=== PATIENT | male | born 1960 | race African-American/Black ===

== ENCOUNTER 2021-09-21 16:20 | Inpatient (IN) | payer MEDICAID ==
[~2021-09-21] VITALS: Ht 180.3 cm; Wt 103.9 kg
[2021-09-21] MEDS ORDERED: NITROGLYCERIN 0.4MG TABLET SL SL ONE (17:00)
[2021-09-21] MEDS ORDERED: ACETAMINOPHEN 650MG/20.3ML UDC PO ONE (17:00)
[2021-09-21 17:38] LABS: BASOPHILS % 0.5 % (0.0-2.0); HEMATOCRIT. 52.1 % (42.0-52.0); HEMOGLOBIN. 17.9 g/dL (14.0-18.0); LYMPHOCYTES % 20.8 % (20.0-50.0); MEAN CORPUSCULAR HEMOGLOBIN 29.9 pg (28.0-32.0); MEAN CORPUSCULAR VOLUME 87.2 fL (80.0-94.0); MEAN PLATELET VOLUME 8.9 fl (7.4-10.4); MONOCYTES % 7.6 % (2.0-8.0); NEUTROPHILS % 70.1 % (40.0-76.0); PLATELET 219 x1000/uL (130-400); RED BLOOD CELL COUNT 5.97 mill/uL (4.7-6.1); RED CELL DISTRIBUTION WIDTH 13.6 % (11.6-14.6)
[2021-09-21 17:43] LABS: CHLORIDE 108 mEq/L (98-107)
[2021-09-21] MEDS ORDERED: FAMOTIDINE 20MG/2ML VIAL IV NR (21:30)
[2021-09-22 01:51] VITALS: BP 154/95
[2021-09-22] MEDS ORDERED: LISI40TA13 PO (02:57)
[2021-09-22] MEDS ORDERED: AMLO10TA80 PO (02:57)
[2021-09-22] MEDS ORDERED: PREG75CA MT (02:57)
[2021-09-22] MEDS ORDERED: CLONIDINE 0.1MG TABLET PO PRN (04:30)
[2021-09-22] MEDS ORDERED: ACETAMINOPHEN 325MG TABLET PO PRN (04:30)
[2021-09-22] MEDS ORDERED: ONDANSETRON HCL 4MG/2ML INJ IV PRN (04:30)
[2021-09-22 07:10] LABS: *AMPHETAMINES SCREEN URINE NEGATIVE (NEGATIVE); *BARBITURATES SCREEN URINE NEGATIVE (NEGATIVE); *BENZODIAZEPINES SCREEN URINE NEGATIVE (NEGATIVE); *COCAINE SCREEN URINE NEGATIVE (NEGATIVE); METHADONE URINE SCREEN NEGATIVE (NEGATIVE)
[2021-09-22 07:11] LABS: CANNABINOID URINE SCREEN PRESUMTIVE POSITIVE (NEGATIVE); OPIATES URINE SCREEN NEGATIVE (NEGATIVE); PHENCYCLIDINE URINE SCREEN NEGATIVE (NEGATIVE)
[2021-09-22 08:00] VITALS: BP 168/93
[2021-09-22] MEDS ORDERED: AMLODIPINE 10MG TABLET PO SCH (09:00)
[2021-09-22 09:51] LABS: BASOPHILS % 0.6 % (0.0-2.0); EOSINOPHILS % 1.4 % (0.0-5.0); HEMOGLOBIN. 17.1 g/dL (14.0-18.0); LYMPHOCYTES % 20.6 % (20.0-50.0); MEAN CORPUSCULAR HEMOGLOBIN 29.7 pg (28.0-32.0); MEAN CORPUSCULAR VOLUME 86.9 fL (80.0-94.0); MEAN PLATELET VOLUME 9.4 fl (7.4-10.4); MONOCYTES % 6.2 % (2.0-8.0); NEUTROPHILS % 71.2 % (40.0-76.0); PLATELET 208 x1000/uL (130-400); RED BLOOD CELL COUNT 5.75 mill/uL (4.7-6.1); RED CELL DISTRIBUTION WIDTH 13.5 % (11.6-14.6)
[2021-09-22] MEDS: ASPIRIN 81MG EC TABLET PO SCH (09:56)
[2021-09-22] MEDS: PREGABALIN 75MG CAPSULE PO SCH ×2 (09:56→17:53)
[2021-09-22] MEDS: LISINOPRIL 40MG TABLET PO SCH (09:57)
[2021-09-22 10:02] LABS: CHLORIDE 107 mEq/L (98-107)
[2021-09-22 10:08] LABS: LDL CHOLESTEROL 122 mg/dL (5-100)
[2021-09-22 10:10] LABS: HDL CHOLESTEROL 37 mg/dL (40-59)
[2021-09-22 10:11] LABS: CREATINE KINASE 244 IU/L (39-308)
[2021-09-22 10:13] LABS: CREATINE KINASE MB FRACTION 1.3 ng/mL (0.5-3.6)
[2021-09-22 12:00] VITALS: BP 150/83
[2021-09-22 13:51] LABS: CLARITY URINE TURBID (CLEAR); COLOR URINE YELLOW (YELLOW); KETONES URINE TRACE (NEGATIVE); LEUKOCYTE ESTERASE URINE NEGATIVE (NEGATIVE); NITRITE URINE NEGATIVE (NEGATIVE); OCCULT BLOOD URINE NEGATIVE (NEGATIVE); PH URINE 5.5 (4.5-8.0); PROTEIN URINE NEGATIVE (NEGATIVE); SPECIFIC GRAVITY URINE 1.023 (1.005-1.030)
[2021-09-22 14:42] LABS: CREATINE KINASE 292 IU/L (39-308)
[2021-09-22 14:44] LABS: CREATINE KINASE MB FRACTION < 1.0 ng/mL (0.5-3.6)
[2021-09-22 16:00] VITALS: BP 148/71
[2021-09-22] MEDS: AMLODIPINE 10MG TABLET PO SCH (17:53)
[2021-09-22 20:00] VITALS: BP 148/91
[2021-09-22] MEDS: METOPROLOL TARTRATE 50MG TABLET PO SCH (20:38)
[2021-09-22] MEDS ORDERED: ATORVASTATIN CALCIUM 20MG TABLET PO SCH (21:00)
[2021-09-23] VITALS: BP 143/82
[2021-09-23 04:00] VITALS: BP 135/77
[2021-09-23 08:00] VITALS: BP 139/79
[2021-09-23] MEDS: LISINOPRIL 40MG TABLET PO SCH (09:00)
[2021-09-23] MEDS: ASPIRIN 81MG EC TABLET PO SCH (09:00)
[2021-09-23] MEDS: AMLODIPINE 10MG TABLET PO SCH (09:00)
[2021-09-23] MEDS: PREGABALIN 75MG CAPSULE PO SCH (09:00)
[2021-09-23] MEDS: METOPROLOL TARTRATE 50MG TABLET PO SCH (09:00)
[2021-09-23] MEDS ORDERED: REGADENOSON 0.4 MG/5 ML IV ONE (10:16)
[2021-09-23 12:00] VITALS: BP 160/100
[2021-09-23] MEDS ORDERED: AMLO10TA80 PO (13:04)
[2021-09-23] MEDS ORDERED: LISI40TA13 PO (13:04)
[2021-09-23 14:02] VITALS: BP 138/82
[2021-09-23] MEDS ORDERED: REGADENOSON 0.4 MG/5 ML IV NR (14:15)
== END 2021-09-23 15:15 | disposition home or self-care (01) | DRG 203 ==
LOC: ER 16:20 → MICUSO 21:15 → 8WST 09-22 02:13
PROVIDERS: ADMIT Internal Medicine; ATTEND Internal Medicine
DX: M94.0 Chondrocostal junction syndrome [Tietze] (principal); E87.8 Other disorders of electrolyte and fluid balance, not elsewhere classified; D72.829 Elevated white blood cell count, unspecified; E66.9 Obesity, unspecified; I10 Essential (primary) hypertension; F17.210 Nicotine dependence, cigarettes, uncomplicated; J44.9 Chronic obstructive pulmonary disease, unspecified; E78.5 Hyperlipidemia, unspecified; Z20.822 Contact with and (suspected) exposure to COVID-19; Z82.49 Family history of ischemic heart disease and other diseases of the circulatory system; Z68.31 Body mass index [BMI] 31.0-31.9, adult; Z71.6 Tobacco abuse counseling
CPT/HCPCS: 36415; 71045; 78452; 80048; 80053; 80061; 80305; 81003; 82550; 82553; 83880; 84484; 85025; 87426; 93005; 93017; 93306; 99285; A9500; J2785; J3490